=== PATIENT | male | born 2000 | race American Indian/Alaskan Native ===

== ENCOUNTER 2023-01-03 09:05 | Emergency (ER) | payer MEDICAID ==
[2023-01-03] MEDS ORDERED: Hydrocortisone/Neomycin/Polymyxin B Otic Susp 10 ML Bottle EARRT ONE (09:34)
[2023-01-03] MEDS ORDERED: Take Home: Doxycycline 100 MG Cap, 4 Cap Pack PO ONE (09:34)
== END 2023-01-03 10:25 | disposition home or self-care (01) ==
LOC: DL.ED 09:05
DX: S00.461A Insect bite (nonvenomous) of right ear, initial encounter (principal); H66.001 Acute suppurative otitis media without spontaneous rupture of ear drum, right ear; L60.0 Ingrowing nail; W57.XXXA Bitten or stung by nonvenomous insect and other nonvenomous arthropods, initial encounter
CPT/HCPCS: 99283; A9270-GY